=== PATIENT | female | born 1970 | race Caucasian/White ===

== ENCOUNTER 2019-04-12 16:18 | Inpatient (IN) | payer MEDICAID ==
[~2019-04-12] VITALS: Ht 149.9 cm; Wt 88.9 kg
[2019-04-12 16:26] VITALS: BP_SYST 138
[2019-04-12] MEDS ORDERED: fentaNYL CITRATE/PF 100 MCG/2 ML AMP IVP ONE ×2 (17:30→20:45)
[2019-04-12] MEDS ORDERED: ONDANSETRON HCL 4 MG/2 ML VIAL IVP ONE (17:30)
[2019-04-12] MEDS ORDERED: NACL 0.9% 1,000 ML IV ONE (17:30)
[2019-04-12 18:02] LABS: BASOPHILS # (AUTO) 0.1 K/uL (0.0-0.2); BASOPHILS % (AUTO) 0.5 % (0.0-2.0); EOSINOPHILS # (AUTO) 0.1 K/uL (0.0-0.4); EOSINOPHILS % (AUTO) 0.5 % (0.0-4.0); HEMATOCRIT 48.7 % (36-48); HEMOGLOBIN 16.4 g/dL (12.0-16.0); LYMPHOCYTES # (AUTO) 1.7 K/uL (1.0-5.5); LYMPHOCYTES % (AUTO) 12.3 % (20.5-51.5); MEAN CORPUSCULAR HEMOGLOBIN 30 pg (27-31); MEAN CORPUSCULAR HGB CONC 34 % (32-36); MEAN CORPUSCULAR VOLUME 90 fL (79.0-98.0); MONOCYTES % (AUTO) 7.2 % (1.7-9.3); NEUTROPHILS % (AUTO) 79.5 % (40.0-70.0); PLATELET COUNT (AUTO) 358 K/uL (130-430); RED BLOOD CELL COUNT(AUTO) 5.45 MIL/uL (4.2-6.2); RED CELL DISTRIBUTION WIDTH 13.4 % (9.0-15.0); WHITE BLOOD COUNT (AUTO) 13.8 K/uL (4.8-10.8)
[2019-04-12 18:08] LABS: CALCIUM 9.9 mg/dL (8.4-11.0); CREATININE 0.81 mg/dL (0.55-1.30); POTASSIUM 3.7 mmol/L (3.5-5.1)
[2019-04-12 18:12] LABS: ALBUMIN 3.7 g/dL (3.4-4.8); TOTAL BILIRUBIN 0.6 mg/dL (0.0-1.0)
[2019-04-12 20:30] LABS: BILIRUBIN,URINE NEGATIVE (NEGATIVE); BLOOD, URINE NEGATIVE (NEGATIVE); CLARITY/URINE CLOUDY (CLEAR); COLOR,URINE YELLOW (YELLOW); GLUCOSE,URINE NEGATIVE (NEGATIVE); KETONES,URINE 1+ (NEGATIVE); LEUKOCYTE ESTERASE ,URINE 1+ (NEGATIVE); NITRITE, URINE NEGATIVE (NEGATIVE); PH,URINE 7.5 (5.0-8.0); PROTEIN URINE NEGATIVE (NEGATIVE)
[2019-04-12 20:43] LABS: BACTERIA,URINE MANY /HPF (None Seen); RBC,URINE 0-3 /HPF (0-3)
[2019-04-12] MEDS ORDERED: DIPHENHYDRAMINE INJ 50 MG/ML VIAL IVP ONE (20:45)
[2019-04-12] MEDS ORDERED: PANTOPRAZOLE SODIUM 40 MG/VIAL (PROTONIX) IVP ONE (20:45)
[2019-04-12] MEDS ORDERED: cefTRIAXone 1 GM IVPB PREMIX 50 ML IV ONE (21:00)
[2019-04-12 22:53] VITALS: BP_SYST 136
[2019-04-12] MEDS ORDERED: PANTOPRAZOLE SODIUM 40 MG/VIAL (PROTONIX) IVP SCH (23:00)
[2019-04-12] MEDS ORDERED: COMMUNICATION ORDER XX ONE (23:00)
[2019-04-12] MEDS: KCL 20 mEq in D5/0.45NS 1000mL 1,000 ML IV SCH (23:06)
[2019-04-12] MEDS: metroNIDAZOLE 500 mg/NS 100 ML IV SCH (23:09)
[2019-04-12] MEDS ORDERED: KCL 20 mEq in D5/0.45NS 1000mL 1,000 ML IV ONE (23:16)
[2019-04-12] MEDS ORDERED: PIPERACILLIN/TAZOBACTAM 3.375 GM/VIAL (ZOSYN) IV ONE (23:16)
[2019-04-12] MEDS ORDERED: metroNIDAZOLE 500 mg/NS 200 ML IV ONE (23:16)
[2019-04-12] MEDS: PIPERACILLIN/TAZO 3.375 GM in NS 50 ML IV SCH ×2 (23:48→23:52)
[2019-04-13] MEDS: ONDANSETRON HCL 4 MG/2 ML VIAL IVP PRN (04:34)
[2019-04-13] MEDS: HYDROmorphone 1 MG INJ. 1 MG/ML AMPUL IVP PRN ×2 (04:35→20:04)
[2019-04-13] MEDS: PIPERACILLIN/TAZO 3.375 GM in NS 50 ML IV SCH ×4 (05:43→23:40)
[2019-04-13] MEDS: metroNIDAZOLE 500 mg/NS 100 ML IV SCH ×3 (06:33→22:21)
[2019-04-13] MEDS ORDERED: fentaNYL CITRATE/PF 100 MCG/2 ML AMP ONE (08:06)
[2019-04-13] MEDS ORDERED: MIDAZOLAM HCL 5 MG/5 ML VIAL ONE (08:06)
[2019-04-13] MEDS ORDERED: SIMETHICONE 40 MG/0.6 ML ML ONE (08:07)
[2019-04-13] MEDS: MIDAZOLAM HCL 5 MG/5 ML VIAL ONE ×2 (08:20→08:24)
[2019-04-13] MEDS: PANTOPRAZOLE SODIUM 40 MG/VIAL (PROTONIX) IVP SCH ×2 (11:41→20:04)
[2019-04-13] MEDS: KCL 20 mEq in D5/0.45NS 1000mL 1,000 ML IV SCH (18:17)
[2019-04-13 20:00] VITALS: BP_SYST 131
[2019-04-13] MEDS ORDERED: ENOXAPARIN SODIUM 40 MG/0.4 ML SYRINGE SUBCUT SCH (21:00)
[2019-04-14 00:34] VITALS: BP_SYST 127
[2019-04-14] MEDS: PIPERACILLIN/TAZO 3.375 GM in NS 50 ML IV SCH ×3 (05:02→17:14)
[2019-04-14] MEDS: metroNIDAZOLE 500 mg/NS 100 ML IV SCH ×2 (06:33→13:13)
[2019-04-14] MEDS: KCL 20 mEq in D5/0.45NS 1000mL 1,000 ML IV SCH ×2 (06:33→17:14)
[2019-04-14] MEDS: ONDANSETRON HCL 4 MG/2 ML VIAL IVP PRN ×3 (07:37→18:10)
[2019-04-14] MEDS: HYDROmorphone 1 MG INJ. 1 MG/ML AMPUL IVP PRN ×3 (07:37→18:10)
[2019-04-14 08:00] VITALS: BP_SYST 136
[2019-04-14] MEDS: PANTOPRAZOLE SODIUM 40 MG/VIAL (PROTONIX) IVP SCH (09:04)
[2019-04-14 12:00] VITALS: BP_SYST 133
[2019-04-14 16:00] VITALS: BP_SYST 138
[2019-04-14 20:25] VITALS: BP_SYST 141
[2019-04-14] MEDS ORDERED: PRO40 PO (20:32)
[2019-04-14] MEDS ORDERED: ONDA4TAB5 PO (20:34)
== END 2019-04-14 21:10 | disposition home or self-care (01) | DRG 241 ==
LOC: SED 16:18 → SMU 21:44
PROVIDERS: ADMIT Family Medicine; ATTEND Family Medicine
PROC: 0DB68ZX Excision of Stomach, Via Natural or Artificial Opening Endoscopic, Diagnostic (ICD-10-PCS; 2019-04-13)
PROC: 0DB98ZX Excision of Duodenum, Via Natural or Artificial Opening Endoscopic, Diagnostic (ICD-10-PCS; principal; 2019-04-13 08:00)
DX: K25.3 Acute gastric ulcer without hemorrhage or perforation (principal); D72.829 Elevated white blood cell count, unspecified; K26.9 Duodenal ulcer, unspecified as acute or chronic, without hemorrhage or perforation; F17.210 Nicotine dependence, cigarettes, uncomplicated; I10 Essential (primary) hypertension; J45.909 Unspecified asthma, uncomplicated; Z87.11 Personal history of peptic ulcer disease; Z88.5 Allergy status to narcotic agent; Z98.891 History of uterine scar from previous surgery
CPT/HCPCS: 36415; 71045; 80053; 80061; 81000-TC; 82550-TC; 83690-TC; 84703; 85025; 87040-TC; 87081; 87086; 88305; 88312; 88313; 93005; 96361; 96365; 96375; 96376; 99285; C9113; J0696; J1170; J1200; J1650; J2250; J2405; J2543; J3010; J3490; J7030